=== PATIENT | male | born 1955 | race Caucasian/White ===

== ENCOUNTER → 2016-11-10 | Outpatient (CLI) | payer OTHER | END | disposition disaster alternative care site (69) | LOC: GRAD 12:14 | DX: R51 Headache (principal); I65.21 Occlusion and stenosis of right carotid artery; I65.01 Occlusion and stenosis of right vertebral artery; G31.9 Degenerative disease of nervous system, unspecified; Z84.89 Family history of other specified conditions | CPT/HCPCS: A9577 ==